=== PATIENT | female | born 1955 | race Caucasian/White ===

== ENCOUNTER → 2020-02-17 | Outpatient (CLI) | payer MEDICARE ==
[~2020-02-17] MED LIST: ALBUTEROL0.09 MG/A2 IH; ANAPROX DS550 MG PO; AUGMENTIN 875875 MG PO; BACTRIM DS 8001 TA1 PO; FLEXERIL10 MG PO; FLEXERIL5 MG PO; HYDROCODONE BIT1 T11 PO; MOTRIN600 MG PO; MOTRIN800 MG PO; PREDNICOT20 MG PO; ULTRAM50 MG PO; VIBRAMYCIN100 MG PO; ZITHROMAX Z PA250 MG PO
== END | disposition home or self-care (01) ==
LOC: CARD 11:38
DX: Z01.818 Encounter for other preprocedural examination (principal)

== ENCOUNTER → 2020-02-24 | Outpatient (CLI) | payer MEDICARE, MEDICAID | END | disposition home or self-care (01) | LOC: MAMMO 13:34 | DX: Z12.31 Encounter for screening mammogram for malignant neoplasm of breast (principal) ==

== ENCOUNTER → 2020-05-13 | Outpatient (CLI) | payer MEDICARE, MEDICAID | END | disposition home or self-care (01) | LOC: RAD 12:55 | PROVIDERS: ATTEND Preventive Medicine Occupational Medicine | DX: M41.85 Other forms of scoliosis, thoracolumbar region (principal); G89.29 Other chronic pain ==

== ENCOUNTER 2020-06-23 13:17 | Observation (INO) | payer MEDICARE, MEDICAID ==
[~2020-06-23] VITALS: Ht 170.2 cm; Wt 60.3 kg
[2020-06-23 13:20] VITALS: BP 148/61
[2020-06-23 15:08] LABS: BASO # 0.1 10*3/uL (0.0-0.1); BASO % 0.4 % (0.0-1.0); EOS # 0.2 10*3/uL (0.0-0.4); EOS % 1.3 % (1.0-4.0); LYMPH # 1.3 10*3/uL (1.3-4.4); LYMPH % 7.8 % (27.0-41.0); MEAN CELL VOLUME 95.8 fl (81.0-99.0); MEAN CORPUSCULAR HGB 32.2 pg (27.0-31.0); MEAN CORPUSCULAR HGB CONC 33.7 g/dl (33.0-37.0); MEAN PLATELET VOLUME 10.1 fl (9.6-12.3); MONO # 0.9 10*3/uL (0.1-1.0); MONO % 5.5 % (3.0-9.0); NEUT # 14.4 10*3/uL (2.3-7.9); NEUT % 84.2 % (47.0-73.0); PLATELET COUNT AUTOMATED 265 10*3/uL (130-400); RED BLOOD COUNT 4.28 10*6/uL (4.10-5.10); RED CELL DISTRI WIDTH 11.6 % (0-14.5); WHITE BLOOD COUNT 17.1 10*3/uL (4.8-10.8)
[2020-06-23 15:29] LABS: ALBUMIN 4.1 gm/dl (3.1-4.5); CREATININE 1.15 mg/dL (0.55-1.02); POTASSIUM 3.8 mmol/L (3.5-5.1); TOTAL PROTEIN 7.1 gm/dL (6.4-8.2)
--- NOTE | 2020-06-23 15:48 | NUR ---
APPLIED SLING TO PT. R ARM.
[2020-06-23 16:00] VITALS: BP 111/62
--- NOTE | 2020-06-23 16:40 | NUR ---
Time: 1639 A 64 year old FEMALE admitted to 4E under services of PORTIA NEWELL DO. Pt. arrived via bed from ER. Chief complaint: FRACTURE OF RIGHT PROXIMAL HUMERUS CLOSED. SONA HOOKER
[2020-06-23 16:45] VITALS: BP 103/58
[2020-06-23] MEDS ORDERED: TAGAMET HB200 M1 PO (17:02)
[2020-06-23] MEDS ORDERED: Motrin,Rufen800 MG PO (17:03)
[2020-06-23] MEDS ORDERED: MULTIVITAMINS1 EAC5 PO (17:03)
--- NOTE | 2020-06-23 19:20 | NUR ---
CALLED DR. INGRAM REGARDING CONSULT, LEFT MESSAGE WITH ANSWERING SWERVICE.
--- NOTE | 2020-06-23 19:30 | NUR ---
PT RESTING IN BED. RESPS EASY AND NON LABORED. NO S/S OF DISTRESS NOTED. VSS. WHITE BOARD UPDATED. POC DISCUSSED W PT. A/O X3. SLING NOTED TO RIGHT ARM. PT STATES PAIN W ANY MOVEMENT. IVF INFUSING W/O INCIDENT. REQUESTING SOMETHING FOR HEART BURN AND ANOTHER PILLOW. WILL CONTINUE TO MONITOR. CALL LIGHT WITHIN REACH.
[2020-06-23 20:00] VITALS: BP 113/61
--- NOTE | 2020-06-23 22:34 | NUR ---
PT C/O 5/10 ACHING R ARM PAIN AND REQUESTING SOMETHING TO HELP HER SLEEP TONIGHT. MEDICATED PER ORDER. WILL MONITOR FOR RELIEF. RESPS EASY AND NON LABORED. CALL LIGHT WITHIN REACH.
--- NOTE | 2020-06-23 23:18 | NUR ---
MEDICATION APPEARS EFFECTIVE. PT SLEEPING. RESPS EASY AND NON LABORED. NO S/S OF DISTRESS NOTED. CALL LIGHT WITHIN REACH.
[2020-06-24] VITALS: BP 138/68
--- NOTE | 2020-06-24 01:36 | NUR ---
PT C/O 8/10 SHARP/THROBBING R ARM PAIN. MEDICATED PER ORDER. RESPS EASY AND NON LABORED. SITTING UP IN BED WATCHING TV. CALL LIGHT WITHIN REACH. WILL MONITOR FOR RELIEF.
--- NOTE | 2020-06-24 02:30 | NUR ---
MEDICATION APPEARS EFFECTIVE. PT SLEEPING. RESPS EASY AND NON LABORED. CALL LIGHT WITHIN REACH.
--- NOTE | 2020-06-24 06:08 | NUR ---
PT C/O 5/10 R ARM PAIN. MEDICATED PER ORDER. WILL MONITOR FOR RELIEF. RESPS EASY AND NON LABORED. RESTING IN CHAIR. CALL LIGHT WITHIN REACH.
[2020-06-24 06:45] LABS: BASO # 0.1 10*3/uL (0.0-0.1); BASO % 0.5 % (0.0-1.0); EOS # 0.2 10*3/uL (0.0-0.4); EOS % 1.5 % (1.0-4.0); HEMATOCRIT 36.8 % (37.0-47.0); LYMPH # 1.7 10*3/uL (1.3-4.4); MEAN CELL VOLUME 96.8 fl (81.0-99.0); MEAN CORPUSCULAR HGB 32.1 pg (27.0-31.0); MEAN CORPUSCULAR HGB CONC 33.2 g/dl (33.0-37.0); MEAN PLATELET VOLUME 10.6 fl (9.6-12.3); MONO # 1.4 10*3/uL (0.1-1.0); MONO % 10.2 % (3.0-9.0); NEUT # 9.9 10*3/uL (2.3-7.9); NEUT % 74.5 % (47.0-73.0); PLATELET COUNT AUTOMATED 272 10*3/uL (130-400); RED CELL DISTRI WIDTH 11.8 % (0-14.5); WHITE BLOOD COUNT 13.3 10*3/uL (4.8-10.8)
[2020-06-24 06:53] LABS: ALBUMIN 3.6 gm/dl (3.1-4.5); ALKALINE PHOSPHATASE 66 U/L (45-117); BUN 16 mg/dl (7-24); CHLORIDE 111 mmol/L (98-107); CHOLESTEROL 152 mg/dL (<200); CREATININE 0.89 mg/dL (0.55-1.02); HDL CHOLESTEROL 39 mg/dl (40-60); LDL CHOLESTEROL 84 mg/dL (9-159); POTASSIUM 3.9 mmol/L (3.5-5.1); SGOT/AST 22 IU/L (3-35); SGPT/ALT 21 U/L (12-78); SODIUM 142 mmol/L (136-145); TOTAL PROTEIN 6.8 gm/dL (6.4-8.2); TRIGLYCERIDES 146 mg/dl (<150); VLDL CHOLESTEROL 29 mg/dL (6-40)
[2020-06-24 08:00] VITALS: BP 100/56
--- NOTE | 2020-06-24 08:40 | NUR ---
PHYSICAL THERAPY Physical Therapy evaluation completed on 4th floor with full evaluation to follow. Recommend physical therapy per plan of care and home with and HH will need stand cane for ambulation discussed w CM in medical meeting Thank you for this referral. Maria Luz Zee PT
--- NOTE | 2020-06-24 08:45 | NUR ---
Occupational Therapy evaluation completed on 4 with full eval to follow. Precautions include NWB RUE with sling wear, new cane use, fall risk, low complexity level [id number]. Recommend OT per pOC and home with home health PT,OT. Thank you for this referral. Rachell Thornton OTR/L
--- NOTE | 2020-06-24 09:00 | NUR ---
Business Services Director in to talk to patient. Patient states lives at home with . There are no steps in the home. Physician: av momin Pharmacy: [facility] health services: none Patient's level of ADLs: INDEPENDENT Patient has working utilities: all working DME: none Follow-up physician's appointment after d/c: will be made by hospitalist nurse director upon discharge Does patient want to access PORTAL?: no Discharge plan discussed with patient, she states she lives at home with her , she is normally independent in adls and ambulation and drives. she states she had a fall when she was helping her sister. patient has righ arm in a sling. discussed with her a short term senior care for 5 days of rehab and 24 hour care prior to returning home. she declined, stated she was able to care for herself at home and her would also be there. also discussed with her [facility] and educated her on the services they provide. she also declined this. case management will follow for any other needs. KEYONNA MALDONADO
--- NOTE | 2020-06-24 09:11 | NUR ---
Medicated with morphine iv per prn order for complaints of rt arm pain. Pt just worked with therapy. States that pain is 9/10.
--- NOTE | 2020-06-24 10:00 | NUR ---
Pt resting in chair with eyes closed. Rt arm remains in sling. No signs of pain at this time.
--- NOTE | 2020-06-24 10:55 | NUR ---
Medicated with norco per prn order for complaints of pain to rt arm. States pain is 5/10.
--- NOTE | 2020-06-24 11:45 | NUR ---
States that norco was effective for pain.
[2020-06-24 12:00] VITALS: BP 110/58
--- NOTE | 2020-06-24 14:11 | NUR ---
Pt states she is experiencing pain to rt shoulder. States that she has her shirt removed and her arm is hurting now. Pt has morphine available. Next dose of norco at 1500. Pt states she will wait for norco, states she is trying to avoid any further iv morphine so she can hopefully go home today.
--- NOTE | 2020-06-24 15:04 | NUR ---
case management recieved a script for a cane for patient. contacted [employer] and spoke to Rachael, faxed patient's information and script to [facility]. Rachael stated they would deliver the cane
--- NOTE | 2020-06-24 15:14 | NUR ---
Medicated with norco per prn order for complaints of pain to rt shoulder. States pain is 8/10. Dr. Vasquez in to see pt.
[2020-06-24 15:46] VITALS: BP 110/52
--- NOTE | 2020-06-24 16:00 | NUR ---
States that medication was effective for pain.
--- NOTE | 2020-06-24 16:08 | NUR ---
Spoke with Dr. Coulter regarding pt desire to go home today and Dr. Vasquez saw and states ok to dc from his standpoint. States they will be around to discuss with pt.
[2020-06-24] MEDS ORDERED: HYDROCODONE-AC1 EAC2 PO (16:59)
[2020-06-24] MEDS ORDERED: VITAMIN D3125 MC1 PO (16:59)
--- NOTE | 2020-06-24 17:40 | NUR ---
Notified Dr. Coulter that pt did qualify for oxygen and needs 2l continuous. States that pt will probably be dc tomorrow then to allow time to set up o2. Pt agreeable to dc tomorrow.
--- NOTE | 2020-06-24 17:52 | NUR ---
PT WAS ASSESSED FOR HOME OXYGEN, PT QUALIFIES PT AT REST SPO2 92% RA, HR 69, RR 18, B/P 110/52 PT AMBULATED SPO2 86-88% RA, PLACED PT ON 2LNC, SPO2 91-93% PT AT REST SPO2 93% ON 2LNC, HR 78, RR 20, B/P 113/49 RN NOTIFIED AND DOCTOR NOTIFIED
[2020-06-24 20:00] VITALS: BP 126/54
--- NOTE | 2020-06-24 20:35 | NUR ---
PATIENT C/O RIGHT ARM/SHOULDER PAIN. RATES 06/20. MEDIATED WITH NORCO AT THIS TIME. WILL CHECK EFFECTIVENESS.
--- NOTE | 2020-06-24 21:35 | NUR ---
[facility]
[2020-06-25] VITALS: BP 102/58
--- NOTE | 2020-06-25 01:20 | NUR ---
PATIENT REQUESTING NORCO FOR C/O RIGHT SHOULDER PAIN. RATES 04/20. NORCO GIVEN AT THIS TIME. WILL CHECK EFFECTIVENESS .
--- NOTE | 2020-06-25 02:20 | NUR ---
PATIENT STATES [facility].
--- NOTE | 2020-06-25 05:10 | NUR ---
PATIENT REQUESTING NORCO FOR RIGHT ARM PAIN. RATES 10. NORCO GIVEN AT THIS TIME WILL CHECK EFFECTIVENESS.
--- NOTE | 2020-06-25 07:46 | NUR ---
Alert and oriented x3. C/o pain to rt shoulder. States pain is 10/10. States that when Dr rounded they examined her and "mess with arm" and now it is very painful. States that she cant't stand the pain. Pt was not due for norco. States she would like morphine.
[2020-06-25 08:00] VITALS: BP 102/57
--- NOTE | 2020-06-25 08:15 | NUR ---
States that morphine helped to relieve pain.
--- NOTE | 2020-06-25 08:40 | NUR ---
PHYSICAL THERAPY Patient seen this am 1;1 for therapy visit and was sitting up in bedside chair upon therapist arrival. Patient identified by name / and joined by OT library clerical assistant this morning for observation only. Patient presented with R UE sling, is NWB on R UE, reporting 8/10 R shoulder pain after receiving recent pain meds. Patient recorded resting SpO2 90% on RA, however uses O2-2L via NC PRN. Therapist applied O2 prior to transfering sit to stand from low chair surface, SBA x 1. Patient ambulated 20'x 1 to bathroom, no AD, then additioanl 35'x 1, demonstrating slow, cautious gait pattern and no change in pain c/o throughout entire treatment session. Patient returned to bedside chair recording SpO2 92%, HR 67 bpm and remained in chair with call light, tray table and telephone. Will continue per POC as tolerated, total treatment time 16 minutes. Henok Rodriguez, TEACHER [employer]
--- NOTE | 2020-06-25 08:40 | NUR ---
OT NOTE Pt was seen this A.M. 1:1 for 20 minute OT session. Upon arrival pt was sitting upright in the recliner. Pt identified by name and and had complaints of 8/10 R shoulder pain. Pt presented to therapy with continuous 2L-O2 via NC which she remained on throughout the entire session with vitals within functional limits throughout entire session. Pt also presented with R sling which remained in place throughout entire session. Pt was able to self recall and verbalize NWB to RUE. While seated pt completed AROM to R wrist and digits over all planes for 1 X 15. Sit to stand completed from chair level with SBA followed by functional mobility to the bathroom with SBA. There she transferred on/off standard commode with SBA. Clothing management completed with SBA. Functional mobility completed back to the recliner with SBA. There she was left with call light in hand, tray table in place, and phone in reach. Continue with rec D/C plan to home with family and home health. DOMENICA Cervantes/Charmaine
--- NOTE | 2020-06-25 09:00 | NUR ---
case management visits with patient, she states she is a possibly discharge to home today. discussed with her case management ordered a cane for her at home from [facility]. she stated she has two canes at home and doesn't need another one. case management cancelled the cane. she also qualified for home oxygen. discussed with her DME companies and she chose [facility]. faxed oxygen script to [facility] and also called and informed them patient is being discharged to home today and will need portable tanks prior to patient being discharge. case management will follow for any other needs
--- NOTE | 2020-06-25 09:16 | NUR ---
Medicated with norco per prn order for complaints of continued pain to rt shoulder. States pain 5.
--- NOTE | 2020-06-25 10:10 | NUR ---
States that pain was relieved by norco.
--- NOTE | 2020-06-25 11:00 | NUR ---
Respiratory delivered o2 take for pt to go home.
--- NOTE | 2020-06-25 11:51 | NUR ---
Spoke with Dr. Chavarria regarding o2 tank was here for home use. Dr. CHAVARRIA states there is a problem with insurance approving home o2 use without a diagnosis of COPD etc. Asked to find who primary care physican was and if pt ever had diagnosis of this. I spoke with pt and she states that she sees Dr. Aguirre or Tamera at [facility] in [place]. States she has never been told that but she does state she has smoked 2 ppd currently and has smoked since age 17.
--- NOTE | 2020-06-25 12:32 | NUR ---
OT NOTE Pt was seen this P.M> 1:1 for second OT session consisting of 15 minutes. Upon arrival pt was sitting upright in the recliner. Pt identified by name and and had complaints of 10/10 R shoulder pain. Pt presented to therapy with R sling donned and on room air. Resting SpO2 92% and heart rate 74 bpm. While seated pt adjusted B socks with use of LUE with supervision. Sit to stand completed from chair level with SBA followed by functional mobilty to the bathroom and back with SBA. Challenged pt's dynamic standing balance while weight shifting, crossing midline, and reaching over all planes. Pt was able to maintain F+/G- standing balance throughout. Pt was left sitting upright in the recliner with call light in hand, tray table in place, and phone in reach. Continue with rec D/C plan to home with family and home health. DOMENICA Cervantes/Charmaine
--- NOTE | 2020-06-25 13:05 | NUR ---
Medicated with norco per prn order for complaints of pain to rt arm. States pain is 5/10.
--- NOTE | 2020-06-25 13:05 | NUR ---
PHYSICAL THERAPY Patient seen this pm for second therapy visit and was still sitting up in bedside chair upon therapist arrival. Patient identified by name / and joined once again by OT preschool assistant director for observation only this session. Patient reports increased c/o of R shoulder pain, 06/20 this afternoon and was off of O2 on RA, recording resting SpO2 92%, HR 74 bpm. Patient transfers all SBA and ambulates without AD, ad josefina in room, 30'x 2, SBA, demonstrating slow, cautious gait pattern and no LOB during 180 turn arounds. Patient also tolerated 3-5 backward steps and eyes open / closed x 10 seconds without LOB prior to returning to bedside chair. Patient also presented with R UE sling and is NWB on R UE. Patient remained in bedside chair with call light, tray table and telephone. Will continue per POC as tolerated, total treatment time 14 minutes. Henok Rodriguez, [employer]UR[employer] EXECUTIVE DIRECTOR
[2020-06-25] MEDS ORDERED: NORCO 7.5-3251 EACH PO (13:07)
--- NOTE | 2020-06-25 13:08 | NUR ---
Spoke with Tania in case management and verified that oxygen was covered for pt.
--- NOTE | 2020-06-25 13:45 | NUR ---
States that pain medication effective for pain to rt arm.
--- NOTE | 2020-06-25 14:05 | NUR ---
Discharge instructions reviewed with patient. Patient receptive and verbalizes understanding. Follow-up care arranged. Written instructions given to patient. IV removed, pt assisted with dressing and packing up belongings and dc via wheelchair with portable o2 at 2l. to cigar packer and picker out front.
--- NOTE | 2020-06-26 07:39 | NUR ---
PHYSICAL THERAPY CO-SIGN I approve of the Physical Therapy notes written above. Maria Luz Zee PT
--- NOTE | 2020-06-26 17:04 | NUR ---
OCCUPATIONAL THERAPY CO-SIGN I approve of the Occupational Therapy notes written above. NESHA ZAVALA OTR/Charmaine
== END 2020-06-25 14:05 | disposition home or self-care (01) ==
LOC: ED 13:17 → EDHOLD 16:06 → 4E 16:22
PROVIDERS: Emergency Medicine; Student in an Organized Health Care Education/Training Program; ADMIT Internal Medicine; ATTEND Internal Medicine
DX: N17.0 Acute kidney failure with tubular necrosis (principal); E83.41 Hypermagnesemia; M25.519 Pain in unspecified shoulder; M41.9 Scoliosis, unspecified; D72.829 Elevated white blood cell count, unspecified; R25.2 Cramp and spasm; J96.00 Acute respiratory failure, unspecified whether with hypoxia or hypercapnia; F17.210 Nicotine dependence, cigarettes, uncomplicated

== ENCOUNTER → 2020-07-03 | Outpatient (CLI) | payer MEDICARE, MEDICAID ==
[~2020-07-03] MED LIST changes: +HYDROCODONE-AC1 EAC2 PO; +MULTIVITAMINS1 EAC5 PO; +Motrin,Rufen800 MG PO; +NORCO 7.5-3251 EACH PO; +TAGAMET HB200 M1 PO; +VITAMIN D3125 MC1 PO
== END | disposition home or self-care (01) ==
LOC: ORTHO 00:19
PROVIDERS: ATTEND Orthopaedic Surgery
DX: S42.309A Unspecified fracture of shaft of humerus, unspecified arm, initial encounter for closed fracture (principal); X58.XXXA Exposure to other specified factors, initial encounter; Y93.89 Activity, other specified; Y92.89 Other specified places as the place of occurrence of the external cause; Y99.8 Other external cause status

== ENCOUNTER → 2020-07-17 | Outpatient (CLI) | payer MEDICARE, MEDICAID | END | disposition home or self-care (01) | LOC: ORTHO 05:52 | PROVIDERS: ATTEND Orthopaedic Surgery | DX: S42.201D Unspecified fracture of upper end of right humerus, subsequent encounter for fracture with routine healing (principal); X58.XXXD Exposure to other specified factors, subsequent encounter ==

== ENCOUNTER → 2020-08-10 | Outpatient (CLI) | payer MEDICARE, MEDICAID | END | disposition home or self-care (01) | LOC: ORTHO 00:46 | PROVIDERS: ATTEND Orthopaedic Surgery | DX: S42.201D Unspecified fracture of upper end of right humerus, subsequent encounter for fracture with routine healing (principal); X58.XXXD Exposure to other specified factors, subsequent encounter ==

== ENCOUNTER → 2020-09-30 | Outpatient (CLI) | payer MEDICARE, MEDICAID | END | disposition home or self-care (01) | LOC: ORTHO 01:12 | PROVIDERS: ATTEND Orthopaedic Surgery | DX: S42.201D Unspecified fracture of upper end of right humerus, subsequent encounter for fracture with routine healing (principal); X58.XXXD Exposure to other specified factors, subsequent encounter ==

== ENCOUNTER → 2020-11-11 | Outpatient (CLI) | payer MEDICARE, MEDICAID | END | disposition home or self-care (01) | LOC: ORTHO 00:40 | PROVIDERS: ATTEND Orthopaedic Surgery | DX: S42.201D Unspecified fracture of upper end of right humerus, subsequent encounter for fracture with routine healing (principal); X58.XXXD Exposure to other specified factors, subsequent encounter ==

== ENCOUNTER → 2020-11-23 | Outpatient (CLI) | payer MEDICARE, MEDICAID | END | disposition home or self-care (01) | LOC: RAD 09:00 | PROVIDERS: ATTEND Orthopaedic Surgery | DX: M85.89 Other specified disorders of bone density and structure, multiple sites (principal) ==

== ENCOUNTER → 2021-06-21 | Outpatient (CLI) | payer MEDICARE, MEDICAID | END | disposition home or self-care (01) | LOC: RAD 15:07 | PROVIDERS: ATTEND Nurse Practitioner Family | DX: J44.9 Chronic obstructive pulmonary disease, unspecified (principal); K44.9 Diaphragmatic hernia without obstruction or gangrene ==

== ENCOUNTER → 2022-03-07 | Outpatient (CLI) | payer OTHER, MEDICAID | END | disposition home or self-care (01) | LOC: MAMMO 10:42 | PROVIDERS: ATTEND Nurse Practitioner Primary Care | DX: Z12.31 Encounter for screening mammogram for malignant neoplasm of breast (principal) ==

== ENCOUNTER → 2022-12-30 | Outpatient (CLI) | payer OTHER, MEDICAID | END | disposition home or self-care (01) | LOC: RAD 10:02 | PROVIDERS: ATTEND Orthopaedic Surgery | DX: M80.00XA Age-related osteoporosis with current pathological fracture, unspecified site, initial encounter for fracture (principal); M85.852 Other specified disorders of bone density and structure, left thigh ==

== ENCOUNTER 2023-03-24 22:46 | Emergency (ER) | payer OTHER, MEDICAID ==
[~2023-03-24] VITALS: Ht 170.1 cm; Wt 54.4 kg
[2023-03-24] MEDS ORDERED: ALBUTEROL0.63 MG/3 INH (22:59)
[2023-03-24] MEDS ORDERED: BUSPIRONE10 MG PO (22:59)
[2023-03-24] MEDS ORDERED: CELEXA20 MG PO (23:00)
[2023-03-24] MEDS ORDERED: BREZTRI AEROS10.7 GM INH (23:01)
[2023-03-25] MEDS ORDERED: PREDNISONE20 M1 PO (00:50)
[2023-03-25] MEDS ORDERED: ZITHROMAX250 MG PO (00:50)
== END 2023-03-25 00:34 | disposition home or self-care (01) ==
LOC: ED 22:46
DX: J44.1 Chronic obstructive pulmonary disease with (acute) exacerbation (principal); F17.210 Nicotine dependence, cigarettes, uncomplicated; Z91.041 Radiographic dye allergy status; Z79.899 Other long term (current) drug therapy; Z90.711 Acquired absence of uterus with remaining cervical stump

== ENCOUNTER → 2023-05-25 | Outpatient (CLI) | payer OTHER ==
[~2023-05-25] MED LIST changes: +ALBUTEROL0.63 MG/3 INH; +BREZTRI AEROS10.7 GM INH; +BUSPIRONE10 MG PO; +CELEXA20 MG PO; +PREDNISONE20 M1 PO; +ZITHROMAX250 MG PO
== END | disposition home or self-care (01) ==
LOC: MAMMO 08:46
PROVIDERS: ATTEND Nurse Practitioner
DX: Z12.31 Encounter for screening mammogram for malignant neoplasm of breast (principal)